=== PATIENT | female | born 1965 | race Caucasian/White ===

== ENCOUNTER 2016-12-15 23:54 | Emergency (ER) | payer BC ==
--- NOTE | ~2016-12-15 | EKG ---
PATIENT: JASE OHARA UNIT #: [id number] Ventricular Rate: 61 BPM Atrial Rate: 61 BPM P-R Interval: 236 ms QRS Duration: 80 ms Q-T Interval: 398 ms QTC Calculation(Bezet): 400 ms P [place]: 50 degrees Calculated R [place]: -28 degrees Calculated T [place]: 9 degrees Diagnosis Line: Sinus rhythm with 1st degree A-V block Diagnosis Line: Low voltage QRS Diagnosis Line: Borderline ECG Diagnosis Line: No previous ECGs available Diagnosis Line: Confirmed by CAREY MEJIA MD ([id number]) on 12/16/2016 Diagnosis Line: 8:05:12 PM INTERPRETING MD: JACKIE MALDONADO
[~2016-12-15 23:54] MED LIST: DILANTIN PO; TAMIFLU75 M1 PO; TRIAMCINOLONE A15 G2 EXT; ZYRTEC10 M2 PO
[2016-12-15] MEDS ORDERED: KEPPRA PO (23:55)
[2016-12-16 00:47] LABS: BUN/CREATININE RATIO 15.55; CALCIUM SERUM 8.9 mg/dL (8.4-10.2); CREATININE SERUM 0.9 mg/dL (0.6-1.4); GLOM FILT RATE Estimated 74.1 mL/min (>60); POTASSIUM 3.4 mmol/L (3.5-5.1)
[2016-12-16 01:13] LABS: URINE SOURCE CLEAN CATCH
[2016-12-16 01:15] LABS: URINE APPEARANCE CLEAR; URINE BILIRUBIN NEG (NEG); URINE BLOOD NEG (NEG); URINE COLOR YELLOW; URINE GLUCOSE NEG (NORM); URINE KETONE NEG (NEG); URINE LEUKOCYTE ESTERASE TRACE (NEG); URINE NITRATE NEG (NEG); URINE PH 6.5 (5-8); URINE PROTEIN NEG (NEG); URINE UROBILINOGEN 0.2 MG/DL (NORM)
[2016-12-16 01:17] LABS: MICRO INDICATED? YES
[2016-12-16 01:18] LABS: CULTURE INDICATED? NO; URINE BACTERIA NEG (NEG); URINE MUCUS PRESENT; URINE RBC 0-2 /[HPF] (0-2); URINE SQUAMOUS EPITHELIAL CELL OCCAS /[HPF]
[2016-12-16 01:25] LABS: AMPHETAMINE NEG (NEG); BARBITURATES NEG (NEG); BENZODIAZEPINES NEG (NEG); COCAINE NEG (NEG); MARIJUANA NEG (NEG); OPIATES NEG (NEG); TRICYCLIC ANTIDEPRESSANTS NEG (NEG); U METHADONE NEG (NEG)
== END 2016-12-16 02:03 | disposition home or self-care (01) ==
LOC: SED 23:54
PROVIDERS: Emergency Medicine
DX: G40.409 Other generalized epilepsy and epileptic syndromes, not intractable, without status epilepticus (principal); F41.9 Anxiety disorder, unspecified
CPT/HCPCS: 36415; 80048; 80307; 81003; 93005; 96365; 99284; J1953